=== PATIENT | female | born 1950 | race Caucasian/White ===

== ENCOUNTER 2017-11-06 21:32 | Emergency (ER) | payer MEDICARE, MEDICAID ==
[~2017-11-06] VITALS: Ht 152.4 cm; Wt 63.5 kg
[~2017-11-06 21:32] MED LIST: ERGO500040 PO; FLUT1BLS IH; FLUT1DIS28 IH; LEVA15HF5 IH; LEVO75TA7 PO
[2017-11-06] MEDS ORDERED: ALBUTEROL SULFATE 2.5 MG/3 ML NEBU ONE (21:56)
[2017-11-06] MEDS ORDERED: IPRATROPIUM BROMIDE 0.5 MG/2.5 ML NEBU ONE (21:57)
[2017-11-06] MEDS ORDERED: IV NORMAL SALINE 500 ML BAG IV ONE (22:00)
[2017-11-06] MEDS ORDERED: ALBUTEROL SULFATE 2.5 MG/3 ML NEBU NEB ONE (22:00)
[2017-11-06] MEDS ORDERED: methylPREDNISolone SOD SUCC 125 MG/2 ML VIAL IV ONE (22:00)
[2017-11-06] MEDS ORDERED: IPRATROPIUM BROMIDE 0.5 MG/2.5 ML NEBU NEB ONE (22:00)
[2017-11-06] MEDS ORDERED: ASPI81TA31 PO (22:32)
[2017-11-06] MEDS ORDERED: ATOR20TA PO (22:32)
[2017-11-06] MEDS ORDERED: methylPREDNISolone SOD SUCC 125 MG/2 ML VIAL ONE (22:35)
[2017-11-06 22:36] LABS: BASOPHILS # (AUTO) 0.1 K/uL (0.0-8.0); EOSINOPHILS # (AUTO) 0.7 K/uL (0.0-0.7); EOSINOPHILS % (AUTO) 7.4 % (0.0-7.0); HEMATOCRIT 41.6 % (31.2-41.9); HEMOGLOBIN 13.5 g/dL (10.9-14.3); LYMPHOCYTES # (AUTO) 3.2 K/uL (20.0-40.0); LYMPHOCYTES % (AUTO) 34.5 % (20.5-51.5); MEAN CORPUSCULAR HEMOGLOBIN 28.2 uug (24.7-32.8); MEAN CORPUSCULAR HGB CONC 33 g/dL (32.3-35.6); MEAN CORPUSCULAR VOLUME 86.9 fL (75.5-95.3); MONOCYTES # (AUTO) 1.2 K/uL (2.0-10.0); MONOCYTES % (AUTO) 12.8 % (0.0-11.0); NEUTROPHILS # (AUTO) 4.1 K/uL (1.8-8.9); NEUTROPHILS % (AUTO) 44.3 % (38.5-71.5); PLATELET COUNT (AUTO) 259 K/uL (179-408); RED BLOOD CELL COUNT(AUTO) 4.79 MIL/uL (3.63-4.92); WHITE BLOOD COUNT (AUTO) 9.3 K/uL (3.8-11.8)
--- NOTE | 2017-11-06 22:38 | NUR ---
PT IN BED. PT'S SPOUSE AT BEDSIDE. PT IS RECEIVING BREATHING TX. PT IS A&OX4. BREATHING TX WELL TOLERATED. VS WNL. WILL RE-ASSESS RESPIRATORY STATUS AFTER BREATHING TX.
[2017-11-06 22:47] LABS: CREATININE 0.9 mg/dL (0.6-1.3); POTASSIUM 4.3 mmol/L (3.5-5.1)
[2017-11-06 22:59] LABS: BILIRUBIN,DIRECT 0.1 mg/dL (0.0-0.2); BILIRUBIN,TOTAL 0.3 mg/dL (0.2-1.0); TOTAL PROTEIN, SERUM 7.7 g/dL (6.4-8.2)
[2017-11-06] MEDS ORDERED: AZITHROMYCIN IV 500 MG in IV DEXTROSE 5% 250 ML IV ONE (23:00)
[2017-11-06] MEDS ORDERED: AZITHROMYCIN 500 MG VIAL IV ONE (23:07)
--- NOTE | 2017-11-06 23:59 | NUR ---
PT IN BED. PT'S SPOUSE AT BEDSIDE. PT'S BREATHING SOUNDS ARE REGULAR AND UNLABORED. PT IS ON NASAL CANULA @ 2 LTS. PT IS RECEIVING ANTIBIOTIC THERAPY. TX BEING TOLERATED WELL. NO SIGNS OR SYMPTOMS OF DISTRESS WITNESSED BY NURSE OR EXPRESSED BY PT.
--- NOTE | 2017-11-07 00:30 | NUR ---
Patient discharged to home in stable conditon. Written and verbal after care instructions given. Patient verbalizes understanding of instructions. Patient able to reach an oxygen saturation level above 95% on room air and reporting no difficulties in breathing. Patient able to ambulate unassisted with steady gait. Peripheral IV removed. Patient left with all personal belongings.
[2017-11-07 00:34] VITALS: BP 104/63
== END 2017-11-07 00:29 | disposition home or self-care (01) ==
LOC: ER 21:33
DX: J20.9 Acute bronchitis, unspecified (principal); J45.901 Unspecified asthma with (acute) exacerbation; J44.1 Chronic obstructive pulmonary disease with (acute) exacerbation; E03.9 Hypothyroidism, unspecified; Z79.82 Long term (current) use of aspirin; Z79.51 Long term (current) use of inhaled steroids; Z79.899 Other long term (current) drug therapy
CPT/HCPCS: 36415; 70030-TC; 71045; 85025; 87400; 93005; A4663; J0456; J2930; J3590; J7030; J7060

== ENCOUNTER 2017-11-08 01:52 | Inpatient (IN) | payer MEDICAID, MEDICARE ==
[~2017-11-08] VITALS: Ht 160 cm; Wt 68.0 kg
[~2017-11-08 01:52] MED LIST changes: +ASPI81TA31 PO; +ATOR20TA PO; -ERGO500040 PO
[2017-11-08] MEDS ORDERED: IPRATROPIUM BROMIDE 0.5 MG/2.5 ML NEBU NEB ONE (02:00)
[2017-11-08] MEDS ORDERED: IV NORMAL SALINE 500 ML BAG IV ONE (02:00)
[2017-11-08] MEDS ORDERED: ALBUTEROL SULFATE 2.5 MG/3 ML NEBU CONT NEB ONE (02:00)
[2017-11-08] MEDS ORDERED: IPRATROPIUM BROMIDE 0.5 MG/2.5 ML NEBU ONE (02:04)
[2017-11-08] MEDS ORDERED: ALBUTEROL SULFATE 2.5 MG/3 ML NEBU ONE (02:04)
--- NOTE | 2017-11-08 02:11 | NUR ---
Patient refused to have blood drawn. Dr Mosley aware
--- NOTE | 2017-11-08 02:13 | NUR ---
Patient refused EKG Dr Mosley aware
--- NOTE | 2017-11-08 02:19 | NUR ---
Patient refsuing Hep Lock Dr Mosley made aware. Explained the purpose of blood work,EKG and Hep lock by DR Mosley and staff nurse to patient and staff member
[2017-11-08] MEDS ORDERED: predniSONE 50 MG TABLET ONE (02:25)
[2017-11-08] MEDS ORDERED: predniSONE 10 MG TABLET ONE (02:25)
[2017-11-08] MEDS ORDERED: predniSONE 20 MG TABLET PO ONE (02:30)
--- NOTE | 2017-11-08 02:30 | NUR ---
Patient only agreed to have Hepl to be placed with no blood works to be drawn and PCXR
[2017-11-08] MEDS ORDERED: IV NS 1000 ML 1,000 ML IV PRN (02:40)
[2017-11-08] MEDS ORDERED: HYDROCODONE/APAP 5-325MG TABLET PO PRN (02:45)
[2017-11-08] MEDS ORDERED: Z GUARD REMEDY PASTE 57 GM TUBE TOP PRN (02:45)
[2017-11-08] MEDS ORDERED: ONDANSETRON 4 MG/2 ML VIAL IV PRN (02:45)
[2017-11-08] MEDS ORDERED: MAGNESIUM HYDROXIDE 30 ML LIQUID UDC PO PRN (02:45)
--- NOTE | 2017-11-08 03:00 | NUR ---
ADMITTED A 67 Y/O FEMALE WITH DX OF ACUTE ASTHMA. ACCOMPANIED BY CHAVA. PT MAINLY FARSI, SPEAKS AND UNDERSTAND LIMITED HONDURAN. HAD TO TRANSLATE FOR THIS NURSE. ROUTINE ADMISSION CARE DONE. PLAN OF CARE INITIATED. SAFETY MEASURES INITIATED.
--- NOTE | 2017-11-08 03:06 | NUR ---
Transfered to 2nd floor via shane
[2017-11-08 04:00] VITALS: BP 115/58
[2017-11-08] MEDS: ALBUTEROL SULFATE 2.5 MG/ 0.5 ML NEBU NEB SCH ×11 (04:12→23:30)
[2017-11-08] MEDS: IPRATROPIUM BROMIDE 0.5 MG/2.5 ML NEBU NEB SCH ×6 (04:12→22:57)
--- NOTE | 2017-11-08 06:06 | NUR ---
AOX4. DENIES ANY PAIN OR SOB AT THIS TIME. IN NO ACUTE DISTRESS. ON O2 AT 2LPM VIA NC. O2 SAT AT 96%. VS WNL. OCCASIONAL DRY COUGH. IV ON RIGHT AC INTACT AND PATENT. IVF INFUSING. SR WITH PVC'S ON TELE. SAFETY MEASURE MAINTAINED AND CALL MONTANEZ WITHIN REACH.
--- NOTE | 2017-11-08 07:30 | NUR ---
RECEIVED PATIENT IN BED AWAKE ALERT AND ORIENTED WITH LANGUAGE BARRIER WITH LITTLE DIVEHI ASSISTED WITH AMBULATING TO THE BATHROOM TO VOID.ON O2 IN PROGRESS WITH SOBE.BREATHING TREATMENT GIVEN ORDERED AND HELPFUL.PATIENT HAS ORDER FOR INFILTERATION AT THIS TIME.PATIENT FINALLY AGREED FOR LABS TO BE DONE BUT CONTINUE TO REFUSE FOR INFLUENZA A AND B ORDERED.EXPLAINED TO THE PATIENT THAT IT IS NECESSRY FOR THIS TEST BUT SHE REFUSED.PATIENTS RIGHTS TO REFUSE RESPECTED AT THIS TIME WILL INFORM THE DOCTOR.
[2017-11-08 08:05] LABS: CREATININE 0.9 mg/dL (0.6-1.3); POTASSIUM 4.8 mmol/L (3.5-5.1)
[2017-11-08 08:10] LABS: BILIRUBIN,DIRECT 0.1 mg/dL (0.0-0.2); BILIRUBIN,TOTAL 0.3 mg/dL (0.2-1.0); TOTAL PROTEIN, SERUM 7.3 g/dL (6.4-8.2)
[2017-11-08 08:32] LABS: BASOPHILS % (AUTO) 0.3 % (0.0-2.0); HEMATOCRIT 41.3 % (31.2-41.9); HEMOGLOBIN 13.5 g/dL (10.9-14.3); LYMPHOCYTES % (AUTO) 6.3 % (20.5-51.5); MEAN CORPUSCULAR HEMOGLOBIN 28.4 uug (24.7-32.8); MEAN CORPUSCULAR HGB CONC 33 g/dL (32.3-35.6); MEAN CORPUSCULAR VOLUME 86.7 fL (75.5-95.3); MONOCYTES # (AUTO) 0.3 K/uL (2.0-10.0); MONOCYTES % (AUTO) 2.2 % (0.0-11.0); NEUTROPHILS # (AUTO) 13.9 K/uL (1.8-8.9); NEUTROPHILS % (AUTO) 91.2 % (38.5-71.5); PLATELET COUNT (AUTO) 231 K/uL (179-408); RED BLOOD CELL COUNT(AUTO) 4.77 MIL/uL (3.63-4.92); WHITE BLOOD COUNT (AUTO) 15.3 K/uL (3.8-11.8)
--- NOTE | 2017-11-08 10:30 | NUR ---
PATIENT WAS SEEN AND EXAMINED BY DR COLE WITH NEW ORDERS AND NOTED CONTINUE WITH HAND HELD NEBULIZER AND PATIENT STILL WITH SOBE WITH O2 ORDERED WITH SATS WNL AT THIS TIME
--- NOTE | 2017-11-08 10:30 | NUR ---
LACTIC ACID RESULT FROM THE LAB IS 3.[address] COLE WITH NEW ORDERS AND NOTED
[2017-11-08] MEDS: ATORVASTATIN 20 MG TABLET PO SCH ×2 (10:45→20:29)
[2017-11-08] MEDS: LEVOTHYROXINE SODIUM 75 MCG TABLET PO SCH (11:00)
[2017-11-08] MEDS: methylPREDNISolone SOD SUCC 40 MG/ML VIAL IV SCH ×2 (11:00→18:05)
--- NOTE | 2017-11-08 11:00 | NUR ---
PATIENT STATED THAT SHE HAS A HEADACHE MEDICATED WITH TYLENOL ORDERED PER THE PATIENT REQUEST MADE COMFORTABLE AND WILL CONTINUE TO OBSERVE.
[2017-11-08] MEDS: ACETAMINOPHEN 325 MG TABLET PO PRN ×2 (11:01→20:29)
[2017-11-08 11:03] VITALS: BP 114/63
[2017-11-08] MEDS: AZITHROMYCIN IV 500 MG in IV DEXTROSE 5% 250 ML IV SCH (11:31)
--- NOTE | 2017-11-08 14:28 | NUR ---
REMAIN ON IVF AND IV ANTIBIOTICS ORDERED WITH NO ADVERSE OR ALLERGIC REACTIONS AT THIS TIME
[2017-11-08 15:08] VITALS: BP 100/58
--- NOTE | 2017-11-08 16:00 | NUR ---
AMBULATING IN THE HALLWAY STATED THAT SHE WAS OKAY WITHOUT THE O2 BUT PUTS IT BACK SOON SHE GOT BACK INTO HER ROOM STATED THAT SHE IS FEELING BETTER .
--- NOTE | 2017-11-08 18:42 | NUR ---
PATIENT CONTINUE TO REFUSE TO HAVE HER IV RECONNECTED SO I CALLED AND NOTIFIED DR COLE OF THE REFUSAL WITH NO NEW ORDERS AT THIS TIME.
--- NOTE | 2017-11-08 19:30 | NUR ---
Pt is awake and walking around in her room at this time. Refusing to reconnect IV pump to run IV fluids. Encouraged PO fluid intake. Makes all needs known. Call light within reach.
[2017-11-08 20:18] VITALS: BP 135/66
--- NOTE | 2017-11-08 23:00 | NUR ---
Pt continues to refuse IV fluids. Pt requesting to remove IV line because she doesn't want it. She says "it's broken." Flushed IV site and changed the dressing. Told pt she needs IV access to receive her medications. Pt nodded understanding. Pt complained she did not receive her 7pm breathing treatment. Contact RT who said she had refused it. PT will get her a breathing treatment now.
[2017-11-09 00:15] VITALS: BP 120/64
[2017-11-09] MEDS: methylPREDNISolone SOD SUCC 40 MG/ML VIAL IV SCH ×3 (02:48→18:05)
[2017-11-09 04:29] VITALS: BP 95/45
[2017-11-09 06:40] LABS: BASOPHILS % (AUTO) 0.1 % (0.0-2.0); HEMATOCRIT 37.8 % (31.2-41.9); HEMOGLOBIN 12.3 g/dL (10.9-14.3); LYMPHOCYTES # (AUTO) 0.7 K/uL (20.0-40.0); LYMPHOCYTES % (AUTO) 7.3 % (20.5-51.5); MEAN CORPUSCULAR HEMOGLOBIN 28.2 uug (24.7-32.8); MEAN CORPUSCULAR HGB CONC 33 g/dL (32.3-35.6); MEAN CORPUSCULAR VOLUME 86.6 fL (75.5-95.3); MONOCYTES # (AUTO) 0.4 K/uL (2.0-10.0); MONOCYTES % (AUTO) 3.7 % (0.0-11.0); NEUTROPHILS # (AUTO) 8.7 K/uL (1.8-8.9); NEUTROPHILS % (AUTO) 88.9 % (38.5-71.5); PLATELET COUNT (AUTO) 222 K/uL (179-408); RED BLOOD CELL COUNT(AUTO) 4.36 MIL/uL (3.63-4.92); WHITE BLOOD COUNT (AUTO) 9.7 K/uL (3.8-11.8)
[2017-11-09] MEDS: LEVOTHYROXINE SODIUM 75 MCG TABLET PO SCH (06:40)
[2017-11-09 06:48] LABS: CREATININE 0.8 mg/dL (0.6-1.3); PHOSPHOROUS 3.4 mg/dL (2.5-4.9); POTASSIUM 4.7 mmol/L (3.5-5.1)
[2017-11-09] MEDS: ALBUTEROL SULFATE 2.5 MG/ 0.5 ML NEBU NEB SCH ×6 (07:23→23:08)
[2017-11-09] MEDS: IPRATROPIUM BROMIDE 0.5 MG/2.5 ML NEBU NEB SCH ×5 (07:23→23:08)
[2017-11-09] MEDS: AZITHROMYCIN IV 500 MG in IV DEXTROSE 5% 250 ML IV SCH (10:27)
--- NOTE | 2017-11-09 10:30 | NUR ---
Patient refusing IVF, patient stated "antibiotics ok, not that one (pointing at the IVF bag)". MD aware. IV antibiotic administered as ordered.
[2017-11-09 11:35] VITALS: BP 128/72
[2017-11-09 16:06] VITALS: BP 122/67
--- NOTE | 2017-11-09 18:25 | NUR ---
Patient sitting in chair, in no distress, no SOB. Patient occasionally walks in the hallway, gets anxious. Discussed with patient regarding safety/fall risk and to use call light when assistance is needed. Patient education/teachings provided regarding medications and treatment. Patient verbalized understanding.
--- NOTE | 2017-11-09 19:30 | NUR ---
PT RECEIVED IN BED, AWAKE. A/OX3. ABLE TO MAKE NEEDS KNOWN. V/S STABLE. IN NO ACUTE DISTRESS. NO C/O PAIN AT THIS TIME. IV INTACT AND PATENT, HEP-LOCKED. PT REFUSES IV FLUIDS, MAD AWARE. NO C/O OF SOB. PT ON 2LNC, TOLERATING WELL.PT REFUSES ROUTINE BREATHING TREATMENT AT THIS TIME. PT STATES SHE WOULD LIKE THE RESPIRATORY THERAPIST TO RETURN AT 11PM. SAFETY MEASURES IMPLEMENTED. BED ALARM SET. CALL LIGHT WITHIN REACH.
[2017-11-09 20:21] VITALS: BP 146/81
[2017-11-09] MEDS: ATORVASTATIN 20 MG TABLET PO SCH (20:48)
[2017-11-09] MEDS: ACETAMINOPHEN 325 MG TABLET PO PRN (20:51)
--- NOTE | 2017-11-09 20:55 | NUR ---
PT C/O HEADACHE PAIN 11/29. ADMINISTERED TYLENOL ORDERED. IN STABLE CONDITION. WILL CONT TO MONITOR.
[2017-11-10] MEDS ORDERED: GUAIFENESIN/CODEINE 5 ML LIQUID UDC PO PRN (02:30)
[2017-11-10] MEDS: methylPREDNISolone SOD SUCC 40 MG/ML VIAL IV SCH ×3 (02:33→18:14)
--- NOTE | 2017-11-10 02:35 | NUR ---
PT C/O OF COUGH AND PAIN ON COUGHING. ADMINISTERED ONE DOSE OF ROBITUSSIN WITH CODEINE AD ORDERED. IN STABLE CONDITION. WILL CONT TO MONITOR.
[2017-11-10] MEDS: HYDROCODONE BIT/HOMATROPINE 5 ML UDC PO PRN (03:39)
--- NOTE | 2017-11-10 03:43 | NUR ---
PT CONT TO C/O OF COUGHING. STATES SHE IS UNABLE TO SLEEP, ANXIOUS AD HOT. CERTIFIED TEACHER ASSISTANT IN WITH PATIENT. ADMINISTERED HYDROMET ORDERED. IN STABLE CONDITION. WILL CONT TO MONITOR.
[2017-11-10] MEDS ORDERED: ALBUTEROL SULFATE 2.5 MG/ 0.5 ML NEBU NEB PRN (04:15)
[2017-11-10] MEDS ORDERED: IPRATROPIUM BROMIDE 0.5 MG/2.5 ML NEBU NEB PRN (04:15)
[2017-11-10 05:23] VITALS: BP 151/90
--- NOTE | 2017-11-10 05:45 | NUR ---
END OF SHIFT NOTES. PT SLEPT INTERMITTENTLY THROUGHOUT SHIFT. IN STABLE CONDITION. PT COUGH CEASED, CONT ON 2LNC TOLERATING WELL. AFEBRILE. CONT TO REFUSE IV FLUIDS, BUT TOLERATES FLUID INTAKE WELL. ENCOURAGED TO INCREASE FLUID INTAKE. ALL NEEDS ATTENDED. SAFETY MAINTAINED. CALL LIGHT WITHIN REACH.
[2017-11-10] MEDS: LEVOTHYROXINE SODIUM 75 MCG TABLET PO SCH (06:31)
[2017-11-10] MEDS: IPRATROPIUM BROMIDE 0.5 MG/2.5 ML NEBU NEB SCH ×4 (07:32→19:13)
[2017-11-10] MEDS: ALBUTEROL SULFATE 2.5 MG/ 0.5 ML NEBU NEB SCH ×4 (07:32→19:14)
[2017-11-10 09:29] LABS: BASOPHILS % (AUTO) 0.2 % (0.0-2.0); HEMATOCRIT 42.1 % (31.2-41.9); HEMOGLOBIN 13.9 g/dL (10.9-14.3); LYMPHOCYTES % (AUTO) 6.7 % (20.5-51.5); MEAN CORPUSCULAR HEMOGLOBIN 28.4 uug (24.7-32.8); MEAN CORPUSCULAR HGB CONC 33 g/dL (32.3-35.6); MONOCYTES # (AUTO) 0.6 K/uL (2.0-10.0); MONOCYTES % (AUTO) 4.5 % (0.0-11.0); NEUTROPHILS # (AUTO) 12.9 K/uL (1.8-8.9); NEUTROPHILS % (AUTO) 88.6 % (38.5-71.5); PLATELET COUNT (AUTO) 269 K/uL (179-408); WHITE BLOOD COUNT (AUTO) 14.5 K/uL (3.8-11.8)
[2017-11-10] MEDS: AZITHROMYCIN 250 MG TABLET PO SCH (10:00)
[2017-11-10 11:44] VITALS: BP 128/65
[2017-11-10 15:30] LABS: BILIRUBIN,DIRECT 0.1 mg/dL (0.0-0.2); BILIRUBIN,TOTAL 0.2 mg/dL (0.2-1.0)
[2017-11-10 15:39] VITALS: BP 127/91
--- NOTE | 2017-11-10 15:39 | NUR ---
Patient walking in the hallway without oxygen. Oxygen saturating at 88% on room air, patient unable to tolerate room air, experiencing SOB upon exertion. Instructed patient to keep oxygen on, patient verbalized understanding. Will endorse to oncoming shift RN.
--- NOTE | 2017-11-10 18:00 | NUR ---
Patient anxious, c/o of SOB. SOB upon exertion. Patient seen by MD. Patient education/teaching regarding treatment and medications provided. Instructed patient not to ambulated without assistance but patient still insists on walking. Safety measures in place, bed alarm on, call light within reach.
[2017-11-10] MEDS ORDERED: ACETYLCYSTEINE 20% 6000 MG/30 ML VIAL NEB SCH (18:45)
[2017-11-10] MEDS ORDERED: GUAIFENESIN/DEXTROMETHORPHAN TAB.SR.12H PO SCH (18:45)
[2017-11-10] MEDS: ACETYLCYSTEINE 10% 4ML VIAL IH SCH (19:13)
--- NOTE | 2017-11-10 19:29 | NUR ---
Initial round of inhaled mucomyst has been administered and tolerated well.
[2017-11-10] MEDS ORDERED: ACETYLCYSTEINE 20% 800 MG/4 ML VIAL NEB SCH (19:30)
[2017-11-10] MEDS: ACETAMINOPHEN 325 MG TABLET PO PRN (19:43)
[2017-11-10 20:00] VITALS: BP 141/87
[2017-11-10] MEDS: ATORVASTATIN 20 MG TABLET PO SCH (20:00)
[2017-11-10] MEDS ORDERED: GUAIFENESIN LA 600 MG TABLET.SA PO SCH (21:00)
[2017-11-10] MEDS ORDERED: ACETYLCYSTEINE 20% 800 MG/4 ML VIAL PO SCH (21:00)
[2017-11-11] MEDS: methylPREDNISolone SOD SUCC 40 MG/ML VIAL IV SCH ×3 (03:20→18:57)
[2017-11-11 04:00] VITALS: BP_SYST 138; BP_SYST 149; BP_DIAS 69; BP_DIAS 79
--- NOTE | 2017-11-11 05:44 | NUR ---
Pt slept well through the night. C/O SOB with exertion. Reminded patient to stay in her room and conserve energy. On 02 at 2L and saturation of 93%. Continues to refuse IV fluids. Will only allow IV medications. Only requested Tylenol once at bedtime for headache.
[2017-11-11] MEDS: LEVOTHYROXINE SODIUM 75 MCG TABLET PO SCH (06:30)
[2017-11-11] MEDS: IPRATROPIUM BROMIDE 0.5 MG/2.5 ML NEBU NEB SCH ×4 (07:13→19:19)
[2017-11-11] MEDS: ACETYLCYSTEINE 10% 4ML VIAL IH SCH ×2 (07:13→19:19)
[2017-11-11] MEDS: ALBUTEROL SULFATE 2.5 MG/ 0.5 ML NEBU NEB SCH ×4 (07:14→19:19)
--- NOTE | 2017-11-11 07:30 | NUR ---
Received patient sitting on a chair with her breathing treatment on. Noted the patient with deep and labored breathing. No apparent s/s of pain. Patient is alert and oriented, ambulatory and able to verbalize her needs. No IV running at this time.
--- NOTE | 2017-11-11 09:30 | NUR ---
advised to remove patient's oxygen and have her walk around and take her oxygen levels after. Pt has been already walking around the hallways, noted O2 at 82% RA. advice aware and stated to given her a incentive spirometer. After explaining the how to use it, the patient oxygen levels went up to 85% RA
[2017-11-11] MEDS: AZITHROMYCIN 250 MG TABLET PO SCH (10:46)
[2017-11-11 11:29] VITALS: BP 130/71
--- NOTE | 2017-11-11 12:35 | NUR ---
Patient was informed that there was discharge orders for later today. Pt refused and stated not today but till tomorrow
[2017-11-11] MEDS: ACETAMINOPHEN 325 MG TABLET PO PRN (15:09)
[2017-11-11 15:29] VITALS: BP 130/76
--- NOTE | 2017-11-11 19:20 | NUR ---
End of shift notes: Patient has been compliant with nursing care and medications. Patient has been noted to be walking around throughout the hallways. Patient is still noted with labored breathing. Noted patient takes off her NC. Incentive spirometer by bedside. Client spoke to and stated her wishes to stay another night and is ok with that
--- NOTE | 2017-11-11 20:00 | NUR ---
RECEIVED PATIENT SEATED IN CHAIR. SHE DENIES PAIN OR RESP DISTRESS. SAFETY AND COMFORT MEASURES IN PLACE, CALL LIGHT LEFT WITHIN PATIENT'S REACH. NO CONCERNS AT THIS TIME, WILL CONTINUE TO MONITOR PATIENT
[2017-11-11 20:24] VITALS: BP 137/77
[2017-11-11] MEDS: ATORVASTATIN 20 MG TABLET PO SCH (21:08)
[2017-11-12] MEDS: methylPREDNISolone SOD SUCC 40 MG/ML VIAL IV SCH ×2 (03:00→11:00)
[2017-11-12 04:00] VITALS: BP 125/76
--- NOTE | 2017-11-12 06:41 | NUR ---
PATIENT SLEPT WELL THROUGH THE SHIFT, SHE DENIED PAIN OR ANY DISCOMFORT. NO RESPIRATORY DISTRESS ON SHIFT, PATIENT IS STABLE WITH NO SIGNIFICANT CHANGES IN STATUS. SAFETY MEASURES MAINTAINED AT ALL TIMES
[2017-11-12] MEDS: LEVOTHYROXINE SODIUM 75 MCG TABLET PO SCH (07:06)
[2017-11-12] MEDS: IPRATROPIUM BROMIDE 0.5 MG/2.5 ML NEBU NEB SCH ×2 (07:31→11:30)
[2017-11-12] MEDS: ALBUTEROL SULFATE 2.5 MG/ 0.5 ML NEBU NEB SCH ×2 (07:31→11:30)
[2017-11-12] MEDS: ACETYLCYSTEINE 10% 4ML VIAL IH SCH (07:32)
[2017-11-12] MEDS: HYDROCODONE BIT/HOMATROPINE 5 ML UDC PO PRN (11:27)
[2017-11-12] MEDS: AZITHROMYCIN 250 MG TABLET PO SCH (11:28)
[2017-11-12 11:51] VITALS: BP 103/61
--- NOTE | 2017-11-12 13:00 | NUR ---
DR. COLE IN TO EXAMINE PT. AND GIVE HOME INSTRUCTIONS.---WITH HOME RX'S
--- NOTE | 2017-11-12 13:30 | NUR ---
ALL HOME INSTRUCTIONS REVIEWED WITH PT. AND PT'S. INCLUDING HOME RX'S. IV D/C'D.
--- NOTE | 2017-11-12 14:00 | NUR ---
HOME INSTRUCTIONS RE--REVIEWED WITH PT. AND PT'S. . DISCHARGED TO VIA W/C BY Rocky.
== END 2017-11-12 13:40 | disposition home or self-care (01) | DRG 202 ==
LOC: ER 01:55 → TELE 02:30 → MED 11-09 17:35
PROVIDERS: ADMIT Internal Medicine; ATTEND Internal Medicine
DX: J45.901 Unspecified asthma with (acute) exacerbation (principal); E87.2 Acidosis; I50.32 Chronic diastolic (congestive) heart failure; J20.9 Acute bronchitis, unspecified; E86.0 Dehydration; Z79.82 Long term (current) use of aspirin; E78.00 Pure hypercholesterolemia, unspecified; E78.5 Hyperlipidemia, unspecified; E03.9 Hypothyroidism, unspecified; H91.90 Unspecified hearing loss, unspecified ear; M19.019 Primary osteoarthritis, unspecified shoulder
CPT/HCPCS: 36415; 70030-TC; 71045; 83605; 83735; 84100; 85025; 87040; 87400; 93005; 94640; 94664; A4663; J0456; J2920; J2930; J3590; J7030; J7040; J7060; J7512; Q0144